=== PATIENT | male | born 1960 | race Caucasian/White ===

== ENCOUNTER 2021-09-24 12:08 | Emergency (ER) | payer BC, OTHER | END 2021-09-24 13:50 | disposition left against medical advice (07) | LOC: ER1 12:08 | DX: J18.9 Pneumonia, unspecified organism (principal); R31.9 Hematuria, unspecified; M79.10 Myalgia, unspecified site; F17.200 Nicotine dependence, unspecified, uncomplicated; I10 Essential (primary) hypertension; Z85.46 Personal history of malignant neoplasm of prostate | CPT/HCPCS: 71045; 81001; 87086; 99283 ==